=== PATIENT | male | born 2000 | race Two or more races ===

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

== ENCOUNTER 2018-05-15 22:34 | Emergency (ER) | payer MEDICAID ==
[~2018-05-15] VITALS: Ht 188 cm; Wt 104.3 kg
[2018-05-15] MEDS ORDERED: ONDANSETRON HCL 4 MG/2 ML VIAL IV ONE (23:00)
[2018-05-15] MEDS ORDERED: MORPHINE SULFATE 10 MG/ML INJ 1ML SDV IV ONE ×3 (23:00→23:45)
[2018-05-16 02:31] VITALS: BP 135/72
[2018-05-16] MEDS ORDERED: HYDROcodone-ACET 5/325MG TAB PO ONE (02:45)
== END 2018-05-16 02:59 | disposition home or self-care (01) ==
LOC: EDBD 22:34 → ER 22:40
DX: S43.005A Unspecified dislocation of left shoulder joint, initial encounter (principal); V49.49XA Driver injured in collision with other motor vehicles in traffic accident, initial encounter; Y93.89 Activity, other specified; Y99.8 Other external cause status; Y92.89 Other specified places as the place of occurrence of the external cause
CPT/HCPCS: 73020; 73030; 96374; 96375; 99283; J2270; J2405